=== PATIENT | female | born 1960 | race Caucasian/White ===

== ENCOUNTER 2023-12-15 14:57 | Observation (INO) | payer MEDICARE, OTHER ==
[~2023-12-15] VITALS: Ht 167.6 cm; Wt 49.5 kg
[2023-12-15] MEDS ORDERED: NS 1,000 ML IV ONE (15:25)
[2023-12-15 15:53] LABS: BASO % 0.4 % (0.0-1.0); EOS # 0.1 10^3/uL (0.0-0.5); EOS % 0.9 % (0.0-3.0); HEMATOCRIT 39.7 % (36.0-47.0); LYMPH # 1.4 10^3/uL (1.5-5.0); LYMPH % 17.5 % (24.0-44.0); MEAN CORPUSCULAR HEMOGLOBIN 30.5 pg (27.0-33.0); MEAN CORPUSCULAR HGB CONC 32.7 g/dl (32.0-36.5); MEAN CORPUSCULAR VOLUME 93.2 fl (80.0-96.0); MONO # 0.6 10^3/uL (0.0-0.8); MONO % 7.9 % (2.0-8.0); NEUTROPHILS # 5.8 10^3/uL (1.5-8.5); NEUTROPHILS % 72.9 % (36.0-66.0); PLATELET COUNT, AUTOMATED 229 10^3/uL (150-450); RED BLOOD COUNT 4.26 10^6/uL (4.00-5.40); WHITE BLOOD COUNT 7.9 10^3/uL (4.0-10.0)
[2023-12-15 16:00] LABS: LIPASE 29 U/L (12-53)
[2023-12-15 16:01] LABS: CK-MB VALUE MASS < 1.0 NG/ML (<3.6)
[2023-12-15 16:02] LABS: ALBUMIN 3.7 G/DL (3.2-5.2); ALKALINE PHOSPHATASE 80 U/L (46-116); ALT/SGPT 10 U/L (7.0-40); AST/SGOT 15 U/L (<34); BILIRUBIN,DIRECT 0.1 MG/DL (<0.4); BILIRUBIN,TOTAL 0.4 MG/DL (0.3-1.2); BLOOD UREA NITROGEN 18 MG/DL (9-23); CALCIUM LEVEL 8.4 MG/DL (8.3-10.6); CARBON DIOXIDE LEVEL 22 MMOL/L (20-31); CHLORIDE LEVEL 110 MMOL/L (98-107); CPK CREATINE PHOSPHOKINASE 156 U/L (34-145); CREATININE FOR GFR 1.06 MG/DL (0.55-1.30); GLOMERULAR FILTRATION RATE 55.4 (>45); GLUCOSE, FASTING 122 MG/DL (74-106); MB/CK RELATIVE INDEX 0.64 (< OR =4); POTASSIUM SERUM 3.2 MMOL/L (3.5-5.1); SODIUM LEVEL 142 MMOL/L (136-145); TOTAL PROTEIN 6.4 G/DL (5.7-8.2)
[2023-12-15 16:04] LABS: THYROID STIMULATING HORMONE 3.307 uIU/ML (0.55-4.78)
[2023-12-15 16:05] LABS: FREE T4 1.08 NG/DL (0.89-1.76)
[2023-12-15 16:32] LABS: PHOSPHORUS LEVEL 3.7 MG/DL (2.4-5.1)
[2023-12-15 17:28] LABS: CK-MB VALUE MASS < 1.0 NG/ML (<3.6)
[2023-12-15 17:39] LABS: CPK CREATINE PHOSPHOKINASE 162 U/L (34-145); MB/CK RELATIVE INDEX 0.61 (< OR =4)
[2023-12-15] MEDS: NS 250 ML IV ONE ×4 (17:45→20:40)
[2023-12-15] MEDS: POTASSIUM CHLORIDE 10MEQ SR TABLET PO ONE (17:52)
[2023-12-15] MEDS: NS 1,000 ML IV ONE (18:05)
[2023-12-15] MEDS ORDERED: MOM 30ML SUSPENSION UDC PO PRN (21:05)
[2023-12-15] MEDS ORDERED: GABA-282 PO (22:47)
[2023-12-15] MEDS ORDERED: METO1TAB32 PO (22:47)
[2023-12-15] MEDS ORDERED: JARD1TAB PO (22:47)
[2023-12-15] MEDS ORDERED: OSPH1TAB PO (22:47)
[2023-12-15] MEDS ORDERED: ENTR1TAB7 PO (22:47)
[2023-12-15] MEDS ORDERED: ANOR1AER INH (22:47)
[2023-12-15] MEDS ORDERED: LEXA1TAB PO (22:47)
[2023-12-15] MEDS ORDERED: HOME MED LIST COMPLETE! XX SCH (22:50)
[2023-12-15 23:34] LABS: CK-MB VALUE MASS < 1.0 NG/ML (<3.6)
[2023-12-15 23:35] LABS: CPK CREATINE PHOSPHOKINASE 145 U/L (34-145); MB/CK RELATIVE INDEX 0.68 (< OR =4)
[2023-12-16] MEDS: ACETAMINOPHEN TAB 650MG DOSE (2X325MG) PO PRN (00:06)
[2023-12-16] MEDS: LR 1,000 ML IV SCH (00:07)
[2023-12-16] MEDS: NS 500 ML IV ONE ×3 (01:44→13:32)
[2023-12-16] MEDS: HYDROCORTISONE 100MG/2ML VIAL IV SCH (03:56)
[2023-12-16 06:01] LABS: HEMATOCRIT 33.6 % (36.0-47.0); HEMOGLOBIN 11.3 g/dl (12.0-15.5); MEAN CORPUSCULAR HGB CONC 33.6 g/dl (32.0-36.5); MEAN CORPUSCULAR VOLUME 92.3 fl (80.0-96.0); PLATELET COUNT, AUTOMATED 197 10^3/uL (150-450); RED BLOOD COUNT 3.64 10^6/uL (4.00-5.40); WHITE BLOOD COUNT 6.2 10^3/uL (4.0-10.0)
[2023-12-16 06:10] LABS: BLOOD UREA NITROGEN 15 MG/DL (9-23); CALCIUM LEVEL 8.1 MG/DL (8.3-10.6); CARBON DIOXIDE LEVEL 21 MMOL/L (20-31); CHLORIDE LEVEL 114 MMOL/L (98-107); CREATININE FOR GFR 0.93 MG/DL (0.55-1.30); GLOMERULAR FILTRATION RATE > 60.0 (>45); GLUCOSE, FASTING 88 MG/DL (74-106); MAGNESIUM LEVEL 2.1 MG/DL (1.8-2.4); POTASSIUM SERUM 3.4 MMOL/L (3.5-5.1); SODIUM LEVEL 143 MMOL/L (136-145)
[2023-12-16] MEDS: POTASSIUM CHLORIDE 10MEQ SR TABLET PO ONE (08:35)
[2023-12-16] MEDS: MIDODRINE 5 MG TAB PO ONE ×2 (08:36→13:31)
[2023-12-16 10:07] LABS: C REACTIVE PROTEIN QUANTITATIV 1.3 MG/DL (<1.0); CK-MB VALUE MASS 1.1 NG/ML (<3.6)
[2023-12-16 10:08] LABS: MB/CK RELATIVE INDEX 0.68 (< OR =4)
[2023-12-16 10:15] LABS: PROCALCITONIN 0.05 ng/ml
[2023-12-16] MEDS: ENOXAPARIN 40MG/0.4ML SYRINGE (J1650 PER 10MG) SC SCH (10:57)
[2023-12-16] MEDS ORDERED: PERCOCET 5MG/325MG TAB PO PRN (13:05)
[2023-12-16] MEDS ORDERED: NALOXONE INJ 0.4MG/1ML VIAL IV PRN (13:05)
[2023-12-16] MEDS ORDERED: PERCOCET PO (13:18)
[2023-12-16] MEDS ORDERED: BUDE3CAP5 PO (13:18)
[2023-12-16] MEDS: GABAPENTIN 300 MG CAP PO SCH (13:31)
[2023-12-16] MEDS: PERCOCET 5MG/325MG TAB PO ONE (13:32)
[2023-12-16 14:18] LABS: CLOSTRIDIUM DIFFICILE PCR NEGATIVE (NEGATIVE)
[2023-12-16 15:20] LABS: IONIZED CALCIUM 4.4 MG/DL (4.5-5.3)
[2023-12-16] MEDS: BUDESONIDE EC 3MG CAP (ENTOCORT EC) PO SCH (15:45)
[2023-12-16 15:51] LABS: BLOOD UREA NITROGEN 16 MG/DL (9-23); CARBON DIOXIDE LEVEL 21 MMOL/L (20-31); CHLORIDE LEVEL 114 MMOL/L (98-107); CREATININE FOR GFR 0.91 MG/DL (0.55-1.30); GLOMERULAR FILTRATION RATE > 60.0 (>45); GLUCOSE, FASTING 159 MG/DL (74-106); POTASSIUM SERUM 4.2 MMOL/L (3.5-5.1); SODIUM LEVEL 142 MMOL/L (136-145)
[2023-12-16 16:00] VITALS: BP 126/59; O2SAT 98
[2023-12-16 16:15] VITALS: TEMP 98.2
[2023-12-16] MEDS ORDERED: ESCITALOPRAM OXALATE 10 MG TAB (LEXAPRO) PO SCH (21:00)
== END 2023-12-16 16:31 | disposition home or self-care (01) ==
LOC: M ED 14:57 → EDBD 14:57 → M ED INP 14:58
PROVIDERS: ADMIT Internal Medicine; ATTEND Internal Medicine
DX: R19.7 Diarrhea, unspecified (principal); E86.0 Dehydration; K52.831 Collagenous colitis; I95.1 Orthostatic hypotension; R00.1 Bradycardia, unspecified; M54.50 Low back pain, unspecified; E87.6 Hypokalemia; R63.6 Underweight; Z79.899 Other long term (current) drug therapy; Z88.0 Allergy status to penicillin
CPT/HCPCS: 36415; 70450; 71045; 72125; 73502; 80048; 80076; 82330; 82550; 82553; 83605; 83690; 83735; 83880; 84100; 84145; 84439; 84443; 84484; 85025; 85027; 85652; 86140; 87324; 87507; 93005; 93041; 93306; 94760; 96361; 96372; 96374; 96375; 96376; 97161; 97530; 99285; G0378; J1650; J1720